=== PATIENT | female | born 1960 | race African-American/Black ===

== ENCOUNTER 2016-05-18 09:43 | Emergency (ER) | payer MEDICARE, OTHER ==
[~2016-05-18] VITALS: Ht 157.5 cm; Wt 96.2 kg
[~2016-05-18 09:43] MED LIST: ABILIFY10 MG ORAL; ADVAIR 100-501 EACH INH; ALBUTEROL2.5 MG/3 M INH; AMBIEN10 MG ORAL; ATIVAN1 MG ORAL; ATORVASTATIN CA40 MG PO; AUGMENTIN 875-1 EAC1 ORAL; AZITHROMYCIN250 MG ORAL; BACLOFEN10 MG ORAL; BACTRIM DS TAB1 EAC1 ORAL; BENADRYL25 MG ORAL; CARISOPRODOL350 MG PO; CELEBREX100 MG PO; COLACE250 MG ORAL; COLACE50 MG ORAL; CYCLOBENZAPRINE10 MG ORAL; CYMBALTA30 MG ORAL; CYMBALTA60 MG ORAL; DALIRESP500 MCG PO; ESTRACE1 MG ORAL; GABAPENTIN300 MG PO; HYDROCODON-ACE1 EA13 ORAL; HYDROCODON-ACE1 EA16 PO; HYDROMORPHONE ER8 MG PO; HYDROMORPHONE HC4 M1 PO; IBUPROFEN600 MG ORAL; IRON325 M2 PO; KETOCONAZOLE15 GM TOP; KLONOPIN1 MG ORAL; LEXAPRO10 MG ORAL; MOVANTIK25 MG PO; NEURONTIN300 MG ORAL; NEXIUM40 MG ORAL; NEXIUM40 MG PO; NORCO 10/3251 EA ORAL; NORCO 5-325 TA1 EAC1 ORAL; ONDANSETRON HCL8 M1 PO; POLYETHYLENE G255 GM PO; PREDNISONE10 M2 PO; PREDNISONE50 MG PO; PREMARIN0.9 MG PO; PROAIR HFA8.5 GM INH; RANITIDINE HCL150 M2 ORAL; RESTORIL15 MG ORAL; ROBITUSSIN DM5 ML PO; SAPHRIS10 MG SL; SOMA350 MG PO; SUCRALFATE1 GM ORAL; TRAMADOL HCL50 MG ORAL; TRAZODONE HCL300 MG ORAL; TUDORZA PRESS400 MCG IH; VITAMIN D1000 UNI1 ORAL; VITAMIN D250000 UNI1 ORAL; ZITHROMAX250 MG PO; ZOLPIDEM TARTRAT5 MG PO; ZYPREXA10 MG ORAL
[2016-05-18 10:15] VITALS: BP 116/70
[2016-05-18] MEDS ORDERED: Norco 5mg/325mg tab ORAL ONE (10:15)
[2016-05-18] MEDS ORDERED: Ketorolac 30mg Inj IM ONE (10:15)
[2016-05-18 10:31] VITALS: BP 116/70
--- NOTE | 2016-05-18 10:50 | Emergency Room Report ---
History of Present Illness General Chief Complaint: Lower Back Pain or Injury Source: Patient Present Illness HPI 56-year-old female presents to ED complaining of back pain. States one week ago she had a mechanical fall from a chair and landed on her back. Denies hitting her head or LOC. Patient notes persistent back pain since. Pain is throbbing, 8/10, nonradiating. No other aggravating relieving factors. Patient is chronic history of back pain. No other aggravating or relieving factors. Denies any other associated symptoms Allergies: Coded Allergies: No Known Allergies (Verified , 03/14/09) Patient History Past Medical History: COPD, GERD, psych hx Past Surgical History: none Pertinent Family History: none Social History: Denies: alcohol use, drug use, smoking Now: No Immunizations: UTD Reviewed Nursing Documentation: PMH: Agreed, PSxH: Agreed Nursing Documentation-PMH Past Medical History: No History, Except For Hx Cardiac Problems: Yes Hx Hypertension: Yes Hx Asthma: Yes Hx COPD: Yes - emphysema Hx Cancer: No Hx Gastrointestinal Problems: Yes - GERD History Of Psychiatric Problem: Yes - depression Hx Neurological Problems: Yes Hx Seizures: Yes - Last one was in 2013 Hx Peripheral Neuropathy: Yes Review of Systems All Other Systems: negative except mentioned in HPI Physical Exam Vital Signs Date Time Temp Pulse Resp B/P Pulse Ox O2 Delivery O2 Flow Rate FiO2 05/18/16 09:50 97.5 111 16 104/66 99 Room Air Sp02 EP Interpretation: reviewed, normal General Appearance: no apparent distress, alert, GCS 15, non-toxic Head: normocephalic Eyes: bilateral eye PERRL, bilateral eye normal inspection ENT: normal ENT inspection Neck: normal inspection Respiratory: normal inspection Cardiovascular #1: normal inspection Gastrointestinal: normal inspection Rectal: deferred Genitourinary: no CVA tenderness, no vertebral tenderness Musculoskeletal: normal inspection, tender - paraspinal Neurologic: alert, oriented x3, responsive, motor strength/tone normal, sensory intact, speech normal Psychiatric: judgement/insight normal, memory normal, mood/affect normal, no suicidal/homicidal ideation Skin: normal inspection Lymphatic: normal inspection Medical Decision Making Diagnostic Impression: Primary Impression: Back pain Qualified Codes: M54.5 - Low back pain; G89.29 - Other chronic pain Additional Impression: Chronic pain syndrome ER Course Hospital Course 56-year-old female presents ED complaining of lower back pain s/p fall x 1 week. h/o chronic pain Differential diagnoses include: pyelonephritis, kidney stone, muscle strain, Lspine fracture Clinical course Patient placed on stretcher. After initial history and physical I ordered toradol and Bigelow for pain. Upon reassessment patient states pain has improved. She states she has pain medications at home Diagnosis - back pain, chronic pain syndrome Stable and discharged to home. Followup with PMD. Return to ED if symptoms recur or worsen Last Vital Signs Date Time Temp Pulse Resp B/P Pulse Ox O2 Delivery O2 Flow Rate FiO2 05/18/16 10:31 97 16 116/70 100 Room Air 05/18/16 09:50 97.5 Status: improved Disposition: HOME, SELF-CARE Condition: Stable Referrals: EMMETT JAIN (PCP) Patient Instructions: Back Pain, Adult LUZ LARES M.D. May 18, 2016 10:50
== END 2016-05-18 10:31 | disposition home or self-care (01) ==
LOC: EMR 10:12
DX: M54.5 Low back pain (principal); G89.4 Chronic pain syndrome; I10 Essential (primary) hypertension; J45.909 Unspecified asthma, uncomplicated; J43.9 Emphysema, unspecified; K21.9 Gastro-esophageal reflux disease without esophagitis
CPT/HCPCS: 99284; J1885

== ENCOUNTER 2016-11-20 13:13 | Inpatient (IN) | payer MEDICARE, OTHER ==
[~2016-11-20] VITALS: Ht 157.5 cm; Wt 81.6 kg
[2017-03-05 20:00] VITALS: BP 142/82
--- NOTE | 2017-03-05 20:52 | History & Physical ---
History and Physical History & Physicial HISTORY: 57-year-old female with multiple medical problems including significant lumbar radiculopathy and intractable pain. The patient presented with intractable pain, difficulty walking, and difficulty ambulating with also increasing listlessness. The patient has had significant amount of pain issues and is on pain medications at home but currently not controlled. The patient now presents for admission, further stabilization,and further evaluation. The patient's care was discussed and reviewed. The laboratories were reviewed. The office chart was as well reviewed. The patient has had symptoms ongoing for approximately one week and was offered an admission but refused. No head trauma noted. No incontinence noted. The patient also notes worsening breathing issues. PAST MEDICAL HISTORY: Notable for lumbar radiculopathy, morbid obesity, chronic back pain, lumbar spondylosis, sleep apnea, chronic obstructive pulmonary disease, degenerative disk disease, history of chronic pain syndrome, and history of rib strain MEDICATIONS: Reviewed. ALLERGIES: Reviewed. SOCIAL HISTORY: The patient does have longstanding history of smoking. Does not smoke or drink presently. The patient is disabled at present. REVIEW OF SYSTEMS: all 10 points reviewed PHYSICAL EXAMINATION: GENERAL: A well-developed female, complaining of pain. HEENT: Negative. Extraocular movements are grossly intact. NECK: Supple. LUNGS: Clear and symmetric. Reduced breath sounds overall. CARDIAC: Normal S1 and S2. Regular rate and rhythm without murmurs, rubs, or gallops. ABDOMEN: Overall soft. Nontender. No hepatosplenomegaly. No distention. EXTREMITIES: No cyanosis or clubbing. No significant edema. NEUROLOGIC: Appears to be grossly nonfocal. depressed 124/80 98.4 18 72 LABORATORY DATA: pending IMPRESSION: 1. Radiculopathy 2. chronic encephalopathy 3. Intractable pain. 4. Significant debility. 5. Chronic obstructive pulmonary disease. 6. Gastroesophageal reflux disease. 7. Hypertension. 8. Hypertensive heart disease. RECOMMENDATION: Pain medication. Intravenous hydration. Physical therapy evaluation. resume home medications obtain MRI of spine for further evaluation. continue to monitor clinically obtain pain management evaluation EMMETT JAIN Mar 05, 2017 20:52
[2017-03-05] MEDS ORDERED: HYDROCHLOROTHIA25 MG ORAL (22:06)
[2017-03-05] MEDS ORDERED: ZOLPIDEM TARTRA10 MG ORAL (22:06)
[2017-03-05] MEDS ORDERED: BENAZEPRIL HCL10 MG ORAL (22:06)
[2017-03-05] MEDS ORDERED: HYDROmorphone 1mg/ml Carpuject IVP PRN (23:15)
[2017-03-05] MEDS ORDERED: Zolpidem 5mg tab ORAL PRN (23:30)
[2017-03-05] MEDS: Zolpidem 5mg tab ORAL PRN (23:36)
[2017-03-06] VITALS: BP 143/74
[2017-03-06 04:00] VITALS: BP 125/60
[2017-03-06] MEDS: cefTRIAXone 1 GM in D5W 55 ML IVPB SCH (05:02)
[2017-03-06] MEDS: Guaifenesin/DM 10ml syrup ORAL PRN (05:03)
[2017-03-06 05:31] LABS: BASOPHILS % (AUTO) 1.1 % (0.0-2.0); EOSINOPHILS % (AUTO) 0.4 % (0.0-3.0); LYMPHOCYTES % (AUTO) 30.3 % (20.0-45.0); MEAN CORPUSCULAR HEMOGLOBIN 30.8 PG (27.0-31.0); MEAN CORPUSCULAR HGB CONC 33.2 G/DL (32.0-36.0); MEAN CORPUSCULAR VOLUME 93 FL (80-99); MEAN PLATELET VOLUME 7.5 FL (6.5-10.1); MONOCYTES % (AUTO) 6.5 % (1.0-10.0); NEUTROPHILS % (AUTO) 61.6 % (45.0-75.0); PLATELET COUNT 234 K/UL (150-450); RED BLOOD COUNT 4.14 M/UL (4.20-5.40); RED CELL DISTRIBUTION WIDTH 13.6 % (11.6-14.8); WHITE BLOOD COUNT 9.8 K/UL (4.8-10.8)
[2017-03-06 06:03] LABS: ALANINE AMINOTRANSFERASE 17 U/L (12-78); ALBUMIN/GLOBULIN RATIO 0.8 (1.0-2.7); ANION GAP 9 mmol/L (5-15); ASPARTATE AMINO TRANSFERASE 9 U/L (15-37); CALCIUM 9.6 MG/DL (8.5-10.1); CARBON DIOXIDE 29 MMOL/L (21-32); CHLORIDE 99 MMOL/L (98-107); CREATININE 0.9 MG/DL (0.55-1.30); GLOMERULAR FILTRATION RATE > 60 mL/min (>60); POTASSIUM 3.1 MMOL/L (3.5-5.1); SODIUM 137 MMOL/L (136-145); TOTAL PROTEIN 8.5 G/DL (6.4-8.2)
[2017-03-06 08:00] VITALS: BP 137/78
[2017-03-06] MEDS: Benazepril 10mg tab ORAL SCH (09:14)
[2017-03-06] MEDS: Heparin 5000 units/ml inj SUBQ SCH ×2 (09:16→21:36)
[2017-03-06] MEDS: DALIRESP ORAL SCH (09:16)
--- NOTE | 2017-03-06 11:08 | General Progress Note ---
Assessment/Plan Assessment/Plan IMPRESSION: 1. Radiculopathy 2. chronic encephalopathy 3. Intractable pain. 4. Significant debility. 5. Chronic obstructive pulmonary disease. 6. Gastroesophageal reflux disease. 7. Hypertension. 8. Hypertensive heart disease. RECOMMENDATION: Pain medication. Intravenous hydration. Physical therapy evaluation. will call psyc evaluation reassurance replace K Subjective Allergies: Coded Allergies: No Known Allergies (Verified , 03/14/09) Subjective has pain somewhat depressed Objective Last 24 Hour Vital Signs Date Time Temp Pulse Resp B/P (MAP) Pulse Ox O2 Delivery O2 Flow Rate FiO2 03/06/17 09:14 137/78 03/06/17 08:00 98.2 96 20 137/78 95 03/06/17 04:00 99.5 93 21 125/60 95 03/06/17 00:00 96 Room Air 03/06/17 00:00 98.2 109 20 143/74 96 03/05/17 20:00 96 Room Air 03/05/17 20:00 98.4 100 21 142/82 96 Laboratory Tests 03/06/17 04:35: White Blood Count 9.8, Red Blood Count 4.14L, Hemoglobin 12.7, Hematocrit 38.4, Mean Corpuscular Volume 93, Mean Corpuscular Hemoglobin 30.8, Mean Corpuscular Hemoglobin Concent 33.2, Red Cell Distribution Width 13.6, Platelet Count 234, Mean Platelet Volume 7.5, Neutrophils (%) (Auto) 61.6, Lymphocytes (%) (Auto) 30.3, Monocytes (%) (Auto) 6.5, Eosinophils (%) (Auto) 0.4, Basophils (%) (Auto ) 1.1, Sodium Level 137, Potassium Level 3.1L, Chloride Level 99, Carbon Dioxide Level 29, Anion Gap 9, Blood Urea Nitrogen 8, Creatinine 0.9, Estimat Glomerular Filtration Rate > 60, Glucose Level 79, Calcium Level 9.6, Total Bilirubin 0.5, Aspartate Amino Transf (AST/SGOT) 9L, Alanine Aminotransferase ( ALT/SGPT) 17, Alkaline Phosphatase 65, Total Protein 8.5H, Albumin 3.9, Globulin 4.6, Albumin/Globulin Ratio 0.8L Height (Feet): 5 Height (Inches): 2.00 Weight (Pounds): 180 Objective GENERAL: A well-developed female, complaining of pain. HEENT: Negative. Extraocular movements are grossly intact. NECK: Supple. LUNGS: Clear and symmetric. Reduced breath sounds overall. CARDIAC: Normal S1 and S2. Regular rate and rhythm without murmurs, rubs, or gallops. ABDOMEN: Overall soft. Nontender. No hepatosplenomegaly. No distention. EXTREMITIES: No cyanosis or clubbing. No significant edema. NEUROLOGIC: Appears to be grossly nonfocal. EMMETT JAIN Mar 06, 2017 11:08
[2017-03-06 12:00] VITALS: BP 138/78
[2017-03-06] MEDS ORDERED: Tums 500mg ORAL PRN (15:30)
[2017-03-06 16:00] VITALS: BP 116/75
[2017-03-06] MEDS ORDERED: NS 500ML ONE (18:56)
[2017-03-06] MEDS ORDERED: Tubing IV Secondary IV ONE (18:56)
[2017-03-06 20:00] VITALS: BP 144/74
[2017-03-06] MEDS: Zolpidem 5mg tab ORAL PRN (21:31)
[2017-03-07] VITALS: BP 111/44
[2017-03-07] MEDS: Guaifenesin/DM 10ml syrup ORAL PRN (01:01)
[2017-03-07 04:00] VITALS: BP 113/71
[2017-03-07] MEDS: cefTRIAXone 1 GM in D5W 55 ML IVPB SCH (04:41)
[2017-03-07 08:26] VITALS: BP 131/73
[2017-03-07] MEDS: DALIRESP ORAL SCH (09:23)
[2017-03-07] MEDS: Heparin 5000 units/ml inj SUBQ SCH ×2 (09:24→20:54)
--- NOTE | 2017-03-07 10:56 | General Progress Note ---
Assessment/Plan Assessment/Plan IMPRESSION: 1. Radiculopathy 2. chronic encephalopathy 3. Intractable pain. 4. Significant debility. 5. Chronic obstructive pulmonary disease. 6. Gastroesophageal reflux disease. 7. Hypertension. 8. Hypertensive heart disease. RECOMMENDATION: Pain medication. Intravenous hydration. Physical therapy evaluation. will call psyc evaluation reassurance devora quinoenzn stabilize and dc home with HH impression, plan, and exam edited and reviewed in detail care discussed with RN impression, plan, and exam edited and reviewed in detail care discussed with RN Subjective Allergies: Coded Allergies: No Known Allergies (Verified , 03/14/09) Subjective ONGOING pain itching somewhat depressed Objective Last 24 Hour Vital Signs Date Time Temp Pulse Resp B/P (MAP) Pulse Ox O2 Delivery O2 Flow Rate FiO2 03/07/17 08:46 98.4 03/07/17 08:26 98.4 82 18 131/73 98 Room Air 03/07/17 04:00 97.9 77 20 113/71 95 Room Air 03/07/17 00:00 Room Air 03/07/17 00:00 98.2 87 20 111/44 95 Room Air 03/06/17 20:00 97.7 78 20 144/74 95 Room Air 03/06/17 16:00 97.5 82 20 116/75 95 03/06/17 12:00 97.7 90 20 138/78 94 Height (Feet): 5 Height (Inches): 2.00 Weight (Pounds): 180 Objective GENERAL: A well-developed female, complaining of pain. HEENT: Negative. Extraocular movements are grossly intact. NECK: Supple. LUNGS: Clear and symmetric. Reduced breath sounds overall. CARDIAC: Normal S1 and S2. Regular rate and rhythm without murmurs, rubs, or gallops. ABDOMEN: Overall soft. Nontender. No hepatosplenomegaly. No distention. EXTREMITIES: No cyanosis or clubbing. No significant edema. NEUROLOGIC: Appears to be grossly nonfocal. EMMETT JAIN Mar 07, 2017 10:56
[2017-03-07] MEDS: Benazepril 10mg tab ORAL SCH (11:33)
[2017-03-07 11:55] VITALS: BP 128/87
[2017-03-07 16:20] VITALS: BP 124/67
[2017-03-07 20:00] VITALS: BP 126/68
[2017-03-07] MEDS ORDERED: Naloxegol Oxalate 25mg tab ORAL PRN (23:00)
[2017-03-08] VITALS: BP 128/68
[2017-03-08] MEDS: Zolpidem 5mg tab ORAL PRN ×2 (00:52→21:29)
[2017-03-08] MEDS: cefTRIAXone 1 GM in D5W 55 ML IVPB SCH (03:34)
[2017-03-08 04:00] VITALS: BP 129/69
[2017-03-08 08:40] VITALS: BP 125/66
--- NOTE | 2017-03-08 08:45 | General Progress Note ---
Assessment/Plan Assessment/Plan IMPRESSION: 1. Radiculopathy 2. chronic encephalopathy 3. Intractable pain. 4. Significant debility. 5. Chronic obstructive pulmonary disease. 6. Gastroesophageal reflux disease. 7. Hypertension. 8. Hypertensive heart disease. RECOMMENDATION: Pain medication. Intravenous hydration. Physical therapy evaluation. d/w psych benadryl prn stabilize and dc home with HH today or am impression, plan, and exam edited and reviewed in detail care discussed with RN impression, plan, and exam edited and reviewed in detail care discussed with RN Subjective Allergies: Coded Allergies: No Known Allergies (Verified , 03/14/09) Subjective ONGOING pain itching somewhat depressed Objective Last 24 Hour Vital Signs Date Time Temp Pulse Resp B/P (MAP) Pulse Ox O2 Delivery O2 Flow Rate FiO2 03/08/17 08:40 97.7 87 20 125/66 95 03/08/17 04:00 98.1 72 20 129/69 98 Room Air 03/08/17 04:00 98 Room Air 03/08/17 00:00 95 Room Air 03/08/17 00:00 97.7 81 18 128/68 95 Room Air 03/07/17 20:00 98.6 80 18 126/68 95 Room Air 03/07/17 20:00 95 Room Air 03/07/17 16:21 97.9 03/07/17 16:20 97.9 84 14 124/67 97 Room Air 03/07/17 11:55 97.6 80 15 128/87 97 Room Air 03/07/17 11:33 131/73 Intake and Output 03/08/17 03/09/17 19:00 07:00 Intake Total 360 ml Balance 360 ml Intake Oral 360 ml # Voids 1 Height (Feet): 5 Height (Inches): 2.00 Weight (Pounds): 180 Objective GENERAL: A well-developed female, complaining of pain. HEENT: Negative. Extraocular movements are grossly intact. NECK: Supple. LUNGS: Clear and symmetric. Reduced breath sounds overall. CARDIAC: Normal S1 and S2. Regular rate and rhythm without murmurs, rubs, or gallops. ABDOMEN: Overall soft. Nontender. No hepatosplenomegaly. No distention. EXTREMITIES: No cyanosis or clubbing. No significant edema. NEUROLOGIC: Appears to be grossly nonfocal. EMMETT JAIN Mar 08, 2017 08:45
[2017-03-08] MEDS: DALIRESP ORAL SCH (09:15)
[2017-03-08] MEDS: Benazepril 10mg tab ORAL SCH (09:16)
[2017-03-08] MEDS: Heparin 5000 units/ml inj SUBQ SCH ×2 (09:17→21:30)
[2017-03-08 12:03] VITALS: BP 107/55
[2017-03-08 16:10] VITALS: BP 141/69
[2017-03-08 20:00] VITALS: BP 127/74
[2017-03-09] VITALS: BP 129/66
[2017-03-09 04:00] VITALS: BP 122/75
[2017-03-09] MEDS: cefTRIAXone 1 GM in D5W 55 ML IVPB SCH (04:20)
[2017-03-09 08:00] VITALS: BP 150/80
[2017-03-09 08:43] VITALS: BP 150/80
[2017-03-09] MEDS: Benazepril 10mg tab ORAL SCH (08:43)
[2017-03-09] MEDS: Heparin 5000 units/ml inj SUBQ SCH (08:43)
--- NOTE | 2017-03-09 14:02 | General Progress Note ---
Assessment/Plan Assessment/Plan IMPRESSION: 1. Radiculopathy 2. chronic encephalopathy 3. Intractable pain. 4. Significant debility. 5. Chronic obstructive pulmonary disease. 6. Gastroesophageal reflux disease. 7. Hypertension. 8. Hypertensive heart disease. RECOMMENDATION: dc home continue same rx filled out home health and monitoring consider psych follow up impression, plan, and exam edited and reviewed in detail care discussed with RN (patient seen earlier) Subjective Allergies: Coded Allergies: No Known Allergies (Verified , 03/14/09) Subjective improved would like norco on dc not depressed in good spirits Objective Last 24 Hour Vital Signs Date Time Temp Pulse Resp B/P (MAP) Pulse Ox O2 Delivery O2 Flow Rate FiO2 03/09/17 08:43 150/80 03/09/17 08:00 98.2 81 18 150/80 96 03/09/17 06:52 97.7 03/09/17 04:23 97.7 Room Air 03/09/17 04:00 100.0 76 18 122/75 95 03/09/17 00:30 Room Air 03/09/17 00:00 99.4 80 18 129/66 93 03/08/17 20:29 Room Air 03/08/17 20:00 98.6 84 20 127/74 94 Room Air 03/08/17 16:10 98.4 80 20 141/69 95 Height (Feet): 5 Height (Inches): 2.00 Weight (Pounds): 180 Objective GENERAL: A well-developed female, complaining of pain. HEENT: Negative. Extraocular movements are grossly intact. NECK: Supple. LUNGS: Clear and symmetric. Reduced breath sounds overall. CARDIAC: Normal S1 and S2. Regular rate and rhythm without murmurs, rubs, or gallops. ABDOMEN: Overall soft. Nontender. No hepatosplenomegaly. No distention. EXTREMITIES: No cyanosis or clubbing. No significant edema. NEUROLOGIC: Appears to be grossly nonfocal. EMMETT JAIN Mar 09, 2017 14:02
--- NOTE | 2017-03-12 12:30 | Discharge Summary ---
Discharge Summary Hospital Course Date of Admission Mar 05, 2017 at 20:02 Date of Discharge Mar 09, 2017 at 09:24 Admitting Diagnosis HPI Morgan Leslie is a 57 year old female who was admitted on Mar 05, 2017 at 20: 02 for Acute Abdominal Pain Hospital Course dc summary #[id number] Discharge Medications Continued Medications: Albuterol Sulfate* (Proair Hfa*) 8.5 Gm Hfa.aer.ad 1 PUFF INH Q6H PRN for Shortness of Breath, #8.5 GM 0 Refills Atorvastatin Calcium* (Atorvastatin Calcium*) 40 Mg Tablet 40 MG PO DAILY Benazepril Hcl* (Benazepril Hcl*) 10 Mg Tablet 10 MG ORAL DAILY, TAB Celecoxib* (Celebrex*) 100 Mg Capsule 100 MG PO daily PRN for For Pain Cholecalciferol (Vitamin D3)* (Vitamin D*) 1,000 Unit Tablet 5000 UNITS ORAL weekly Clonazepam* (Klonopin*) 1 Mg Tablet 1 MG ORAL Q6H, 0 Refills Diphenhydramine Hcl* (Benadryl*) 25 Mg Capsule 25 MG ORAL Q6H PRN for Itching, CAP Docusate Sodium (Docusate Sodium) 250 Mg Cap 250 MG ORAL DAILY, CAP Ergocalciferol (Vitamin D2)* (Vitamin D*) 50,000 Unit Capsule 87196 UNIT ORAL ONCE A WEEK, CAP Escitalopram Oxalate* (Lexapro*) 10 Mg Tablet 10 MG ORAL DAILY, TAB Esomeprazole Magnesium (Nexium) 40 Mg Capsule.dr 40 MG ORAL BID, CAP Estradiol* (Estrace*) 1 Mg Tablet 1 MG ORAL DAILY, 0 Refills Gabapentin* (Gabapentin*) 300 Mg Capsule 300 MG PO bid Hydrochlorothiazide* (Hydrochlorothiazide*) 25 Mg Tablet 25 MG ORAL DAILY, TAB Hydrocodone Bit/Acetaminophen 10-325* (Hydrocodon-Acetaminophn 10-325*) 1 Each Tablet 1 TAB ORAL Q8H, 0 Refills Naloxegol Oxalate (Movantik) 25 Mg Tablet 25 MG PO DAILY Roflumilast (Daliresp) 500 Mcg Tablet 500 MCG PO DAILY, TAB Sucralfate* (Carafate*) 1 Gm Tablet 1 TAB ORAL tid Temazepam* (Restoril*) 15 Mg Capsule 15 MG ORAL BEDTIME PRN for Insomnia, CAP Tramadol Hcl* (Ultram*) 50 Mg Tablet 50 MG ORAL bid PRN for For Pain, 0 Refills Trazodone Hcl (Trazodone Hcl) 300 Mg Tablet 150 MG ORAL BEDTIME PRN for Insomnia, TAB Zolpidem Tartrate* (Zolpidem Tartrate*) 10 Mg Tablet 10 MG ORAL BEDTIME PRN for Insomnia, TAB 0 Refills Discharge Discharge Disposition Patient was discharged to Home with Home Health(06) Discharge Diagnoses: Discharge Instructions Discharge Instructions Special Instructions I have been assigned to complete a D/C Summary on this account. I was not involved in the patient management Charlene Rodrigez NP ([facility]) Mar 12, 2017 12:30
--- NOTE | 2017-03-13 10:00 | Discharge Summary 2 SIG ---
DATE OF ADMISSION: 03/05/2017 DATE OF DISCHARGE: 03/09/2017 REASON FOR ADMISSION: 57-year-old female with a history of significant lumbar radiculopathy and intractable pain, presented with difficulty walking and increased pain. She had intractable pain, not controlled with home medications. Symptoms were ongoing for about one week. No head trauma, no recent injury, No incontinence. The patient also noted to have worsening breathing issues. The patient subsequently was admitted for pain management. The patient was admitted with diagnosis of radiculopathy, chronic encephalopathy, intractable pain, significant debility, COPD, GERD, hypertension, and hypertensive heart disease. HOSPITAL STAY: The patient was admitted. The patient was started on IV fluids. The patient was started on empiric antibiotics. Supplemental oxygen and pulmonary toilet were provided as needed. Pain management was addressed and controlled. Physical therapy evaluation was done. The patient was started to work with physical therapy. Fall precautions were maintained. The patient declined MRI of the spine. Potassium was replaced. Home medications were resumed. DVT prophylaxis provided. The patient was progressing. Home health services and physical therapy were arranged for followup. The patient was stable for discharge. FINAL DIAGNOSES: 1. Radiculopathy. 2. Chronic encephalopathy. 3. Intractable pain. 4. Significant debility. 5. Chronic obstructive pulmonary disease. 6. Gastroesophageal reflux disease. 7. Hypertension. 8. Hypertensive heart disease. DISCHARGE MEDICATIONS: See medication reconciliation list. DISCHARGE INSTRUCTIONS: The patient discharged home with home health services. Follow up with the primary medical doctor next week. Dain Sarabia M.D. I have been assigned to dictate discharge summary on this account and I was not involved in the patient's management. Charlene Rodrigez ([facility]te[facility]) N.P. DR: LESLEY JOB#: [id number] CC: JASON
== END 2017-03-09 09:24 | disposition home health service (06) | DRG 551 ==
LOC: 4E 03-05 20:02
DX: M47.26 Other spondylosis with radiculopathy, lumbar region (principal); G93.40 Encephalopathy, unspecified; I11.9 Hypertensive heart disease without heart failure; E66.01 Morbid (severe) obesity due to excess calories; J44.9 Chronic obstructive pulmonary disease, unspecified; K21.9 Gastro-esophageal reflux disease without esophagitis; R53.81 Other malaise; Z87.891 Personal history of nicotine dependence; G89.4 Chronic pain syndrome; R26.2 Difficulty in walking, not elsewhere classified
CPT/HCPCS: 36415; 80053; 85025; 87070; 87205; J8499

== ENCOUNTER 2016-11-20 16:14 | Inpatient (IN) | payer MEDICARE, OTHER ==
[~2016-11-20] VITALS: Ht 157.5 cm; Wt 88.5 kg
[2016-11-20 17:09] VITALS: BP 152/84
[2016-11-20] MEDS ORDERED: Norco 5mg/325mg tab ORAL ONE (18:00)
--- NOTE | 2016-11-20 18:15 | Emergency Room Report ---
History of Present Illness General Chief Complaint: Pain Source: Medical Record Present Illness HPI 56-year-old female presents to the emergency department complaining of 10 out of 10 in severity right-sided lower rib cage pain x8 days. Patient status post fall and previously evaluated at another emergency department and diagnosed with rib contusion. Patient states that she continues to have significant pain is exacerbated upon any type of movement and palpation. Patient reports bruising to the right side of the rib cage. Patient denies new trauma or fall. Pt. reports that she was sent to the ED by PMD for admission. Pt reports PMhx of COPD, lumbar disk surgery, and psychiatric. Denies numbness tingling or loss of sensation or gross motor movements of the extremities, incontinence of bowel or bladder. Denies CP, Palpitations, LOC, AMS, dizziness, Changes in Vision, Sensation, paresthesias, or a sudden severe headache Allergies: Coded Allergies: No Known Allergies (Verified , 03/14/09) Patient History Past Medical History: see triage record Past Surgical History: none Pertinent Family History: none Now: No Immunizations: UTD Reviewed Nursing Documentation: PMH: Agreed, PSxH: Agreed Nursing Documentation-PMH Hx Cardiac Problems: Yes Hx Hypertension: Yes Hx Asthma: Yes Hx COPD: Yes - emphysema Hx Cancer: No Hx Gastrointestinal Problems: Yes - GERD History Of Psychiatric Problem: Yes - Major Depression; Bipolar Hx Neurological Problems: Yes Hx Seizures: Yes - Last one was in 2013 Hx Peripheral Neuropathy: Yes Review of Systems All Other Systems: negative except mentioned in HPI Physical Exam Vital Signs Date Time Temp Pulse Resp B/P (MAP) Pulse Ox O2 Delivery O2 Flow Rate FiO2 11/20/16 16:31 98.4 74 18 152/84 98 Room Air Sp02 EP Interpretation: reviewed, normal General Appearance: no apparent distress, alert, GCS 15, non-toxic Head: normocephalic, atraumatic Eyes: bilateral eye normal inspection, bilateral eye PERRL ENT: hearing grossly normal, normal voice Neck: full range of motion Respiratory: lungs clear, normal breath sounds, speaking full sentences, other - TTP to the lateral lower right rib cage, mild resolving bruise noted, no flail chest no obvious deformity. Cardiovascular #1: regular rate, rhythm Gastrointestinal: non tender, soft, no guarding, no rebound Rectal: deferred Musculoskeletal: back normal, gait/station normal - with cane, normal range of motion, tender - TTP to the lateral lower right rib cage, mild resolving bruise noted, no flail chest no obvious deformity. No ttp to hip or spine. pt is ambulatory with a cane. Neurologic: alert, oriented x3, responsive, motor strength/tone normal, sensory intact, speech normal Psychiatric: judgement/insight normal, memory normal, mood/affect normal Skin: normal color, no rash, warm/dry, well hydrated, other - resolving bruise to lateral right lower rib cage Lymphatic: no adenopathy Medical Decision Making PA Attestation Dr. Hernandez is my supervising Physician whom patient management has been discussed with. Diagnostic Impression: Primary Impression: Intractable pain Additional Impressions: Hx of fall Contusion of rib on right side Qualified Codes: S20.211D - Contusion of right front wall of thorax, subsequent encounter ER Course 56-year-old female presents to the emergency department complaining of 10 out of 10 in severity right-sided lower rib cage pain x8 days. Patient status post fall and previously evaluated at another emergency department and diagnosed with rib contusion. Patient states that she continues to have significant pain is exacerbated upon any type of movement and palpation. Patient reports bruising to the right side of the rib cage. Patient denies new trauma or fall. Pt. reports that she was sent to the ED by PMD for admission. Pt reports PMhx of COPD, lumbar disk surgery, and psychiatric. Denies numbness tingling or loss of sensation or gross motor movements of the extremities, incontinence of bowel or bladder. Denies CP, Palpitations, LOC, AMS, dizziness, Changes in Vision, Sensation, paresthesias, or a sudden severe headache Ddx considered but are not limited to Fracture, dislocation, contusion, Sprain/ Strain/Spasm,PE Vital signs: are WNL, pt. is afebrile H&PE are most consistent with previously sustained musculoskeletal injury of the right lower rib cage with continued pain. - will contact PMD regarding pt. admission. ORDERS: - repeat x-rays are not warranted at this time. -CBC: unremarkable -CMP: unremarkable ED INTERVENTIONS: - [place] PO - Iv access and fluids. DISPOSITION: at this time pt. will be admitted to Dr. Sarabia for Intractable Pain. Dr. Sarabia agreed to admit the pt. and to continue pt. care management. Labs Test 11/20/16 18:30 White Blood Count 6.4 K/UL (4.8-10.8) Red Blood Count 4.02 M/UL (4.20-5.40) Hemoglobin 12.9 G/DL (12.0-16.0) Hematocrit 38.2 % (37.0-47.0) Mean Corpuscular Volume 95 FL (80-99) Mean Corpuscular Hemoglobin 32.2 PG (27.0-31.0) Mean Corpuscular Hemoglobin Concent 33.8 G/DL (32.0-36.0) Red Cell Distribution Width 14.3 % (11.6-14.8) Platelet Count 220 K/UL (150-450) Mean Platelet Volume 7.6 FL (6.5-10.1) Neutrophils (%) (Auto) 43.3 % (45.0-75.0) Lymphocytes (%) (Auto) 46.8 % (20.0-45.0) Monocytes (%) (Auto) 6.9 % (1.0-10.0) Eosinophils (%) (Auto) 1.1 % (0.0-3.0) Basophils (%) (Auto) 1.9 % (0.0-2.0) Sodium Level 138 mEQ/L (135-145) Potassium Level 4.2 mEQ/L (3.4-4.9) Chloride Level 99 mEQ/L (98-107) Carbon Dioxide Level 26 mEQ/L (20-30) Anion Gap 13 (5-15) Blood Urea Nitrogen 15 mg/dL (7-23) Creatinine 1.1 mg/dL (0.5-0.9) Estimat Glomerular Filtration Rate > 60 mL/min (>60) Glucose Level 90 mg/dL (74-106) Calcium Level 9.7 mg/dL (8.6-10.2) Total Bilirubin 0.3 mg/dL (0.0-1.2) Aspartate Amino Transf (AST/SGOT) 10 U/L (5-40) Alanine Aminotransferase (ALT/SGPT) 9 U/L (3-33) Alkaline Phosphatase 55 U/L (35-104) Total Protein 7.9 g/dL (6.6-8.7) Albumin 4.3 g/dL (3.5-5.2) Globulin 3.6 g/dL Albumin/Globulin Ratio 1.1 (1.0-2.7) Last Vital Signs Date Time Temp Pulse Resp B/P (MAP) Pulse Ox O2 Delivery O2 Flow Rate FiO2 11/20/16 17:09 98.4 78 18 152/84 98 Room Air Disposition: ADMITTED INPATIENT Condition: Alanna Lyons Nov 20, 2016 18:15
[2016-11-20 18:51] LABS: BASOPHILS % (AUTO) 1.9 % (0.0-2.0); EOSINOPHILS % (AUTO) 1.1 % (0.0-3.0); LYMPHOCYTES % (AUTO) 46.8 % (20.0-45.0); MEAN CORPUSCULAR HEMOGLOBIN 32.2 PG (27.0-31.0); MEAN CORPUSCULAR HGB CONC 33.8 G/DL (32.0-36.0); MEAN CORPUSCULAR VOLUME 95 FL (80-99); MEAN PLATELET VOLUME 7.6 FL (6.5-10.1); MONOCYTES % (AUTO) 6.9 % (1.0-10.0); NEUTROPHILS % (AUTO) 43.3 % (45.0-75.0); PLATELET COUNT 220 K/UL (150-450); RED BLOOD COUNT 4.02 M/UL (4.20-5.40); RED CELL DISTRIBUTION WIDTH 14.3 % (11.6-14.8); WHITE BLOOD COUNT 6.4 K/UL (4.8-10.8)
[2016-11-20 19:03] LABS: ALANINE AMINOTRANSFERASE 9 U/L (3-33); ALBUMIN/GLOBULIN RATIO 1.1 (1.0-2.7); ANION GAP 13 (5-15); ASPARTATE AMINO TRANSFERASE 10 U/L (5-40); CALCIUM 9.7 mg/dL (8.6-10.2); CARBON DIOXIDE 26 mEQ/L (20-30); CHLORIDE 99 mEQ/L (98-107); CREATININE 1.1 mg/dL (0.5-0.9); GLOMERULAR FILTRATION RATE > 60 mL/min (>60); HEMOLYSIS 8; POTASSIUM 4.2 mEQ/L (3.4-4.9); SODIUM 138 mEQ/L (135-145); TOTAL PROTEIN 7.9 g/dL (6.6-8.7)
[2016-11-20 19:22] VITALS: BP 149/79
[2016-11-20 20:00] VITALS: BP 134/74
[2016-11-20] MEDS ORDERED: celeBREX 100mg Cap **SURGERY PATIENTS ONLY ORAL PRN (20:45)
[2016-11-20] MEDS ORDERED: Norco 10mg/325mg tab ORAL SCH (20:45)
[2016-11-20] MEDS ORDERED: TraZODone 100mg tab ORAL PRN (20:45)
[2016-11-20] MEDS ORDERED: Zolpidem 5mg tab ORAL PRN (21:00)
[2016-11-20] MEDS ORDERED: Norco 10mg/325mg tab ORAL PRN (21:15)
[2016-11-21 00:07] VITALS: BP 100/64
[2016-11-21 04:52] VITALS: BP 110/68
[2016-11-21 08:28] VITALS: BP 136/71
[2016-11-21] MEDS ORDERED: Naloxegol Oxalate 25mg tab ORAL SCH (09:00)
[2016-11-21] MEDS: Docusate 250mg cap ORAL SCH (09:43)
[2016-11-21] MEDS: Sucralfate 1gm tab ORAL SCH ×3 (09:43→17:19)
[2016-11-21] MEDS: Naloxegol Oxalate 25mg tab ORAL SCH (09:44)
--- NOTE | 2016-11-21 11:20 | Diagnostic Imaging Report ---
Indication: Altered level of consciousness Technique: Contiguous 5 mm thick transaxial imaging of the head obtained in a Siemens Sensation [address] scanner. Soft tissue and bone windows generated. Total Dose length Product (DLP): [address] Dose Index Volume (CTDIvol): 70.38, 0.15 mGy Comparison: 05/28/14 Findings: The size and configuration of the cortical sulci, basal cisterns, and ventricles are within normal limits for age. There is no mass effect, midline shift, or edema identified. There is no evidence of acute hemorrhage or abnormal intra-axial or extra-axial fluid collections. The bones and soft tissues are unremarkable. Impression: No mass effect, edema or acute bleed. The CT scanner at [facility] is accredited by the [employer] and the scans are performed using dose optimization techniques as appropriate to a performed exam including Automatic Exposure control.
[2016-11-21 12:18] VITALS: BP 141/77
[2016-11-21] MEDS ORDERED: HYDROmorphone 1mg/ml Carpuject IVP PRN (14:00)
[2016-11-21 16:00] VITALS: BP_SYST 96
[2016-11-21 20:18] VITALS: BP 131/76
[2016-11-22 00:16] VITALS: BP 135/69
[2016-11-22 04:43] VITALS: BP 122/71
--- NOTE | 2016-11-22 06:54 | General Progress Note ---
Assessment/Plan Assessment/Plan intractable pain dizziness acute encephalopathy COPD respiratory insufficiency PLAN monitor overnight PT hydrate pain management dc in am if stable impression, plan, and exam edited and reviewed in detail care discussed with RN Subjective Allergies: Coded Allergies: No Known Allergies (Verified , 03/14/09) Subjective care noted and reviewed overall still has pain Objective Last 24 Hour Vital Signs Date Time Temp Pulse Resp B/P (MAP) Pulse Ox O2 Delivery O2 Flow Rate FiO2 11/22/16 04:43 98.7 89 19 122/71 93 Room Air 11/22/16 00:16 97.7 69 19 135/69 97 Room Air 11/21/16 20:18 97.9 79 20 131/76 96 Room Air 11/21/16 16:00 97.4 79 19 96/ 96 Room Air 11/21/16 15:32 98.1 11/21/16 12:18 98.1 75 20 141/77 94 Room Air 11/21/16 08:28 98.6 77 20 136/71 95 Room Air Height (Feet): 5 Height (Inches): 2.00 Weight (Pounds): 195 Objective WDWN NAD clear breath sounds bilaterally without rhonchi or wheeze [id number] without MRG NABS nontender no HSM no CCE nonfocal EMMETT JAIN Nov 22, 2016 06:54
[2016-11-22 08:00] VITALS: BP 128/83
[2016-11-22] MEDS: Sucralfate 1gm tab ORAL SCH ×3 (08:16→17:23)
[2016-11-22] MEDS: Docusate 250mg cap ORAL SCH (08:16)
[2016-11-22] MEDS: Naloxegol Oxalate 25mg tab ORAL SCH (08:16)
--- NOTE | 2016-11-22 09:00 | History and Physical Report ---
DATE OF ADMISSION: 11/21/2016 REASON FOR ADMISSION: Possible CVA, acute change in status, overall intractable pain. HISTORY: This is a 56-year-old female with multiple medical problems including significant lumbar radiculopathy. The patient presented with intractable pain, difficulty walking, and difficulty ambulating. The patient has had significant amount of pain issues and is on pain medications at home. The patient now presents for admission, further stabilization,and further evaluation. The patient's care was discussed and reviewed. The laboratories were reviewed. The care was discussed with the patient in detail by the ER physician. The office chart was as well reviewed. The patient has had symptoms ongoing for approximately one week worsening in severity. No falls. No head trauma noted. No incontinence noted. The patient also with shortness of breath and chronic respiratory issues. PAST MEDICAL HISTORY: Notable for lumbar radiculopathy, morbid obesity, chronic back pain, lumbar spondylosis, sleep apnea, chronic obstructive pulmonary disease, degenerative disk disease, history of chronic pain syndrome, and history of contusion to the ribs. MEDICATIONS: Reviewed. ALLERGIES: Reviewed. SOCIAL HISTORY: The patient does have longstanding history of smoking. Does not smoke or drink presently. The patient is disabled at present. REVIEW OF SYSTEMS: Otherwise negative with the exception of the above. PHYSICAL EXAMINATION: GENERAL: A well-developed female, complaining of pain. VITAL SIGNS: Temperature 98.6 degrees, pulse 77, respirations 20, blood pressure 136/71, and saturations 95%. HEENT: Negative. Extraocular movements are grossly intact. NECK: Supple. LUNGS: Clear and symmetric. Reduced breath sounds overall. CARDIAC: Normal S1 and S2. Regular rate and rhythm without murmurs, rubs, or gallops. ABDOMEN: Overall soft. Nontender. No hepatosplenomegaly. No distention. EXTREMITIES: No cyanosis or clubbing. No significant edema. NEUROLOGIC: Appears to be grossly nonfocal. The patient appears to be slightly altered from baseline. The patient is able to move all extremities appropriately. LABORATORY DATA: The patient's laboratory data otherwise reviewed and appeared to be fairly benign upon review and no significant acute issues noted. IMPRESSION: 1. Acute change in mental status. 2. Acute on chronic encephalopathy, possible cerebrovascular accident. 3. Intractable pain. 4. Significant debility. 5. Chronic obstructive pulmonary disease. 6. Gastroesophageal reflux disease. 7. Hypertension. 8. Hypertensive heart disease. RECOMMENDATION: Pain medication. Intravenous hydration. Physical therapy evaluation. Head CT and consider further workup if needed. We will monitor clinically for change in interventions and stabilize and proceed with discharge planning to home in the next 48 hours if the patient is stable. Dain Sarabia M.D. DR: MIKE JOB#: [id number] CC: JASON
[2016-11-22 12:00] VITALS: BP 126/64
[2016-11-22] MEDS ORDERED: HYDROmorphone 1mg/ml Carpuject IVP PRN (14:00)
[2016-11-22 16:00] VITALS: BP 111/70
[2016-11-22 20:00] VITALS: BP 113/70
[2016-11-23] VITALS: BP 131/73
[2016-11-23 04:00] VITALS: BP 137/83
[2016-11-23 08:03] VITALS: BP 143/83
[2016-11-23] MEDS: Docusate 250mg cap ORAL SCH (08:18)
[2016-11-23] MEDS: Sucralfate 1gm tab ORAL SCH (08:18)
[2016-11-23] MEDS: Naloxegol Oxalate 25mg tab ORAL SCH (08:19)
--- NOTE | 2016-11-23 08:26 | General Progress Note ---
Assessment/Plan Assessment/Plan intractable pain dizziness acute encephalopathy COPD respiratory insufficiency PLAN stable dc today resume home meds back to baseline home health follow up in office impression, plan, and exam edited and reviewed in detail care discussed with RN Subjective Allergies: Coded Allergies: No Known Allergies (Verified , 03/14/09) Subjective care noted and reviewed overall improved iv access poor Objective Last 24 Hour Vital Signs Date Time Temp Pulse Resp B/P (MAP) Pulse Ox O2 Delivery O2 Flow Rate FiO2 11/23/16 08:03 98.1 74 19 143/83 98 Room Air 11/23/16 07:41 98.1 11/23/16 04:00 98.1 81 18 137/83 97 Room Air 11/23/16 00:00 97.8 92 18 131/73 95 Room Air 11/22/16 20:00 97.9 98 20 113/70 95 Room Air 11/22/16 16:00 98.7 90 20 111/70 97 Room Air 11/22/16 12:00 97.0 74 18 126/64 97 Room Air 11/22/16 10:27 97.4 Intake and Output 11/23/16 11/24/16 19:00 07:00 # Voids 1 Height (Feet): 5 Height (Inches): 2.00 Weight (Pounds): 195 Objective WDWN NAD clear breath sounds bilaterally without rhonchi or wheeze [id number] without MRG NABS nontender no HSM no CCE nonfocal EMMETT JAIN Nov 23, 2016 08:26
--- NOTE | 2016-11-24 15:18 | Discharge Summary ---
Discharge Summary Hospital Course Date of Admission Nov 21, 2016 at 10:05 Date of Discharge Nov 23, 2016 at 10:15 Admitting Diagnosis intractable pain HPI Morgan Leslie is a 56 year old female who was admitted on Nov 21, 2016 at 10: 05 for Cerebrovasular Accident Hospital Course [id number] Discharge Discharge Disposition Patient was discharged to Home with Home Health(06) Discharge Diagnoses: Elisabet Paz NP Nov 24, 2016 15:18
--- NOTE | 2016-11-25 02:30 | Discharge Summary 2 SIG ---
DATE OF ADMISSION: 11/21/2016 DATE OF DISCHARGE: 11/23/2016 BRIEF HOSPITAL COURSE: The patient is a 56-year-old female with multiple medical problems including significant lumbar radiculopathy, presented with intractable pain, difficulty walking and ambulating. The patient had significant amount of pain and is on pain medications at home. She had symptoms ongoing for one week, which has been worsening in severity. There has been acute change in mental status and a head CT was done, which showed no mass effect, edema, or acute bleed. She was resumed on her home medications. She underwent physical therapy evaluation. She was given pain management. She was eventually discharged home with home health. FINAL DIAGNOSES: 1. Intractable pain. 2. Dizziness. 3. Acute encephalopathy. 4. Chronic obstructive pulmonary disease. 5. Respiratory insufficiency. DISPOSITION: The patient was discharged home with home health. DISCHARGE MEDICATIONS: Refer to medication list. FOLLOWUP: Follow up with Dr. Sarabia. Follow up in the office. ACTIVITY: As tolerated. Dain Sarabia M.D. I have been assigned to dictate discharge summary on this account and I was not involved in the patient's management. Elisabet Paz N.P. DR: SANJU JOB#: [id number] CC:
== END 2016-11-23 10:15 | disposition home health service (06) | DRG 551 ==
LOC: EMR 19:22 → INTOOBSV 19:25 → 3E 19:25 → OBSVTOIN 11-21 10:05
DX: M47.26 Other spondylosis with radiculopathy, lumbar region (principal); G93.40 Encephalopathy, unspecified; I11.9 Hypertensive heart disease without heart failure; E66.01 Morbid (severe) obesity due to excess calories; S20.211D Contusion of right front wall of thorax, subsequent encounter; W19.XXXD Unspecified fall, subsequent encounter; J44.9 Chronic obstructive pulmonary disease, unspecified; R06.89 Other abnormalities of breathing; Z68.35 Body mass index [BMI] 35.0-35.9, adult; G47.30 Sleep apnea, unspecified; M51.16 Intervertebral disc disorders with radiculopathy, lumbar region; K21.9 Gastro-esophageal reflux disease without esophagitis; G89.4 Chronic pain syndrome; Z87.891 Personal history of nicotine dependence
CPT/HCPCS: 36415; 70450; 80053; 85025; 96360; 96374; 96523; 99285

== ENCOUNTER 2018-10-28 16:33 | Emergency (ER) | payer BC, OTHER ==
[~2018-10-28] VITALS: Ht 157.5 cm; Wt 81.6 kg
[~2018-10-28 16:33] MED LIST changes: +BENAZEPRIL HCL10 MG ORAL; +HYDROCHLOROTHIA25 MG ORAL; +ZOLPIDEM TARTRA10 MG ORAL
[2018-10-28 17:02] VITALS: BP 109/89
--- NOTE | 2018-10-28 17:12 | NUR ---
ED Nurse Note: Pt walked in with cane c/o multiple trauma/fall. Last fall was Sunday10/26/18. Pt injured her R hip and L foot, described pain to be tingling, aching. When asked, pt did not mentioned any head injury or LOC. Pain 10/10 ziggy. AOx4, VSS ziggy. Will cont to monitor.
[2018-10-28] MEDS ORDERED: Ketorolac 30mg Inj IM ONE (17:15)
--- NOTE | 2018-10-28 18:18 | Emergency Room Report ---
History of Present Illness General Chief Complaint: Multiple Trauma/Fall Present Illness HPI 58-year-old female with history of COPD and anxiety here complaining of pain and left foot after falling today as with his right hip and right hand. Patient is rating the foot pain 10 out of 10 without radiation. Patient is using a cane to be ambulatory usually has a walker at home and says that she is high risk for fall. Denies any tingling numbness. Denies pain radiation. Patient is asking for Dilaudid. Patient says that her primary care provider usually gives her Tylenol with codeine as needed. Patient's denies any head injury or loss of consciousness. Patient is stable and verbal. Denies chest pain, shortness of breath, palpitation, nausea vomiting, dizziness, and other associated symptoms. Patient has no motor or sensory deficits. Able to move her hip around and rolled from side to side on the bed. Allergies: Coded Allergies: No Known Allergies (Verified , 03/14/09) Patient History Past Medical History: see triage record Past Surgical History: unable to obtain Pertinent Family History: none Last Menstrual Period: menopause Now: No Immunizations: UTD Reviewed Nursing Documentation: PMH: Agreed; PSxH: Agreed Nursing Documentation-PMH Hx Cardiac Problems: Yes Hx Hypertension: Yes Hx Asthma: Yes Hx COPD: Yes - emphysema Hx Cancer: No Hx Gastrointestinal Problems: Yes - GERD Hx Neurological Problems: Yes Hx Seizures: Yes - Last one was in 2013 Hx Peripheral Neuropathy: Yes Review of Systems All Other Systems: negative except mentioned in HPI Physical Exam Vital Signs Date Time Temp Pulse Resp B/P (MAP) Pulse Ox O2 Delivery O2 Flow Rate FiO2 10/28/18 16:42 98.4 75 16 151/76 (101) 97 Room Air Sp02 EP Interpretation: reviewed, normal General Appearance: normal inspection, well appearing, no apparent distress, alert, GCS 15 Head: normocephalic, atraumatic Eyes: bilateral eye normal inspection, bilateral eye PERRL ENT: normal ENT inspection, hearing grossly normal, normal pharynx Neck: normal inspection, full range of motion, supple, thyroid normal Respiratory: normal inspection, chest non-tender, lungs clear, normal breath sounds, no rhonchi, no respiratory distress Cardiovascular #1: normal inspection, regular rate, rhythm, no murmur Cardiovascular #2: 2+ dorsalis pedis (R), 2+ dorsalis pedis (L) Gastrointestinal: normal inspection, non tender Rectal: deferred Genitourinary: no CVA tenderness Musculoskeletal: digits/nails normal, normal range of motion, no calf tenderness, pelvis stable, tender - Left foot over fifth metatarsal Neurologic: normal inspection, alert, oriented x3 Psychiatric: normal inspection, judgement/insight normal Skin: no rash Lymphatic: normal inspection, no adenopathy Procedures Splinting Splinting : Consent: Verbal Location: Left foot Splint: poserior short Pre-Proc Neuro Vasc Exam: normal Post-Proc Neuro Vasc Exam: normal Patient Tolerated: Well Complications: None Medical Decision Making PA Attestation All diagnoses and treatment plans were reviewed and discussed with my supervising physician Dr. Mercado Diagnostic Impression: Primary Impression: Nondisplaced fracture of fifth right metatarsal bone Additional Impressions: Contusion of right hip Contusion of right hand ER Course 58-year-old female with history of COPD and anxiety here complaining of pain and left foot after falling today as with his right hip and right hand. Patient is rating the foot pain 10 out of 10 without radiation. Patient is using a cane to be ambulatory usually has a walker at home and says that she is high risk for fall. Denies any tingling numbness. Denies pain radiation. Patient is asking for Dilaudid. Patient says that her primary care provider usually gives her Tylenol with codeine as needed. Patient's denies any head injury or loss of consciousness. Patient is stable and verbal. Denies chest pain, shortness of breath, palpitation, nausea vomiting, dizziness, and other associated symptoms. Patient has no motor or sensory deficits. Able to move her hip around and rolled from side to side on the bed. Ddx considered but are not limited to: foot fracture, foot sprain, foot contusion, foot strain Vital signs: are WNL, pt. is afebrile H&PE are most consistent with: X-ray of left fifth metatarsal, contusion of right hip, contusion of right hand ORDERS: foot Xray , hip and pelvis x-ray, hand x-ray, Tylenol 3, Tylenol ED INTERVENTIONS: Toradol and splinting DISCHARGE: At this time pt. is stable for d/c to home. Will provide printed patient care instructions, and any necessary prescriptions. Care plan and follow up instructions have been discussed with the patient prior to discharge. Splint was ordered, extremity was vascularly and neurovascularly intact after splint was applied. pt advised to follow up with pcp and further imaging may be needed. Follow-up with primary care provider for referral to software applications specialist if worsening symptoms return to the emergency room Other X-Ray Diagnostic Results Other X-Ray Diagnostic Results #1: X-Ray ordered: Left foot # of Views/Limited Vs Complete: 3 View Indication: Pain EP Interpretation: Yes PA Xray: Interpretation reviewed, by supervising MD, and agrees with findings. Interpretation: other - Fracture of left fifth metatarsal Impression: Other - Fracture of left fifth metatarsal Electronically Signed by: Rajesh Franz PA-C Other X-Ray Diagnostic Results #2: X-Ray ordered: Hip # of Views/Limited Vs Complete: 3 View Indication: Pain EP Interpretation: Yes PA Xray: Interpretation reviewed, by supervising MD, and agrees with findings. Interpretation: no dislocation, no soft tissue swelling, no fractures Impression: No acute disease Electronically Signed by: Rajesh Franz PA-C Other X-Ray Diagnostic Results #3: X-Ray ordered: Hand # of Views/Limited Vs Complete: 3 View Indication: Pain EP Interpretation: Yes PA Xray: Interpretation reviewed, by supervising MD, and agrees with findings. Interpretation: no dislocation, no soft tissue swelling, no fractures Impression: No acute disease Electronically Signed by: Rajesh Franz PA-C Last Vital Signs Date Time Temp Pulse Resp B/P (MAP) Pulse Ox O2 Delivery O2 Flow Rate FiO2 10/28/18 17:02 80 16 Room Air 10/28/18 17:02 98.4 109/89 99 Disposition: HOME, SELF-CARE Condition: Stable Scripts Acetaminophen (Tylenol) 325 Mg Tablet 650 MG ORAL Q6H PRN for Prn Pain/Headache/Temp > 101, #30 TAB 0 Refills Prov: Rajesh Carreno 10/28/18 Acetaminophen With Codeine (T#3) (TYLENOL #3 TAB*) Y Tab 1 TAB ORAL Q72H PRN for For Pain for 3 Days, #10 TAB Prov: Rajesh Carreno 10/28/18 Patient Instructions: Cast or Splint Care, [id number], Contusion, Easy-to- Read Additional Instructions: Follow-up with your primary care provider for referral to software applications specialist due to your fracture. If worsening symptoms return to the emergency room. Rajesh Carreno Oct 28, 2018 18:18
[2018-10-28] MEDS ORDERED: TYLENOL325 MG ORAL (18:24)
[2018-10-28] MEDS ORDERED: ACETAMINOPHEN-1 EAC1 ORAL (18:24)
[2018-10-28 18:45] VITALS: BP 111/67
[2018-10-28 18:55] VITALS: BP 111/67
--- NOTE | 2018-10-28 18:55 | NUR ---
ER DISCHARGE NOTE: Patient is cleared to be discharged per ERMD, pt is aox4, on room air, with stable vital signs. pt was given dc and prescription instructions, pt was able to verbalize understanding, pt id band removed. pt is able to ambulate with steady gait. pt took all belongings.
--- NOTE | 2018-10-28 19:15 | NUR ---
ED Nurse Note: Pt will be picked up by Taxi, and Taxi is delay about 20 minutes due to traffic. Pt VSS, talking to friend on phone. Await for taxi.
--- NOTE | 2018-10-28 19:44 | NUR ---
ED Nurse Note: Pt picked up by [facility], all safe with wheel chaor out of unit.
--- NOTE | 2018-10-29 10:40 | Diagnostic Imaging Report ---
Indication: Right hand pain Findings: 3 views of the right hand were obtained. Normal bony mineralization and alignment are demonstrated. No acute fractures, erosions, or periosteal reaction are seen. Soft tissues are unremarkable. Impression: No acute findings.
--- NOTE | 2018-10-29 10:41 | Diagnostic Imaging Report ---
Indications: Right hip pain Findings: Two views of the right hip were obtained. No acute fracture is demonstrated. Alignment of the hip is within normal limits. Soft tissues are unremarkable. Lower lumbar fusion at L5-S1 and laminectomy noted. Impression: Negative for acute injury.
--- NOTE | 2018-10-29 10:41 | Diagnostic Imaging Report ---
Indication: Foot pain Comparison: None Findings: 3 views of the left foot were obtained. Fracture at the base of the fifth metatarsal demonstrated. The fracture appears intra-articular extending to the fifth metatarsal cuboid joint. Soft tissue swelling noted. IMPRESSION: Acute fracture base of the fifth metatarsal
== END 2018-10-28 20:00 | disposition home or self-care (01) ==
LOC: EMR 18:20
DX: S92.352A Displaced fracture of fifth metatarsal bone, left foot, initial encounter for closed fracture (principal); W19.XXXA Unspecified fall, initial encounter; Z91.81 History of falling; Y92.9 Unspecified place or not applicable; J44.9 Chronic obstructive pulmonary disease, unspecified; S70.01XA Contusion of right hip, initial encounter; S60.221A Contusion of right hand, initial encounter; I10 Essential (primary) hypertension; K21.9 Gastro-esophageal reflux disease without esophagitis; G62.9 Polyneuropathy, unspecified; G40.909 Epilepsy, unspecified, not intractable, without status epilepticus
CPT/HCPCS: 29515; 73130; 73502; 73630; 96372; 99284; J1885